=== PATIENT | male | born 1990 ===

== ENCOUNTER 2017-10-09 10:47 | Emergency (ER) | payer BC ==
[2017-10-09 10:55] VITALS: BP 143/81
--- NOTE | 2017-10-09 11:20 | Emergency Department Report ---
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 Patient also states that last month or 2 he's had some increased sneezing and congestion secondary possibly to pollen.), No Rhinorrhea, No Sore Throat, No Ear Pain, No Sick Contacts, No Hemoptysis, No Chest Pain, No Shortness of Breath, No Fever ED Review of Systems ROS: Stated complaint: MEDICAL CLEARANCE Other details as noted in HPI Comment: All other systems reviewed and negative ED Past Medical Hx - Past Medical History Previous Medical History?: No - Surgical History Past Surgical History?: No - Social History Smoking Status: Former Smoker Substance Use Type: None Minor Respiratory Exam - Exam General: Vital signs noted. No distress. Alert and acting appropriately. HEENT: Yes Moist Mucous Membranes, No Pharyngeal Erythema, No Pharyngeal Exudates, No Rhinorrhea, No Conjuctival Injection, No Frontal Tenderness, No Maxillary Tenderness Ear: Neither TM Bulge, Neither TM Erythema, Neither EAC Pain, Neither EAC Discharge Neck: Yes Supple, No Adenopathy Lungs: Yes Good Air Exchange, No Wheezes, No Ronchi, No Stridor, No Cough, No Labored Respirations, No Retractions, No Use of Accessory Muscles, No Other Abnormal Lung Sounds Heart: Yes Regular, No Murmur Abdomen: Yes Normal Bowel Sounds, No Tenderness, No Peritoneal Signs Skin: No Rash, No Edema Neurologic: Alert and oriented, no deficits. Musculoskeletal: Unremarkable. ED Course Vital Signs 10/09/17 10:51 Temperature 98.2 F Pulse Rate 76 Respiratory 16 Rate Blood Pressure 143/81 O2 Sat by Pulse 98 Oximetry ED Medical Decision Making - Medical Decision Making The patient was given recommendations to take [id number] Claritin and Flonase will be discharged home. Critical care attestation.: If time is entered above; I have spent that time in minutes in the direct care of this critically ill patient, excluding procedure time. ED Disposition Clinical Impression: Allergic rhinitis Qualifiers: Allergic rhinitis trigger: other Allergic rhinitis seasonality: non-seasonal Qualified Code(s): J30.89 - Other allergic rhinitis Disposition: DC-01 TO HOME OR SELFCARE Is pt being admited?: No Does the pt Need Aspirin: No Condition: Stable Additional Instructions: Please try [id number] Claritin or Zyrtec with the addition of Flonase for your symptoms
== END 2017-10-09 11:25 | disposition home or self-care (01) ==
LOC: EDSEX → ED 10:47
DX: J30.89 Other allergic rhinitis (principal); Z87.891 Personal history of nicotine dependence
CPT/HCPCS: 99281

== ENCOUNTER 2021-05-25 17:53 | Emergency (ER) | payer SELFPAY ==
[2021-05-25 19:09] VITALS: BP 123/71
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
== END 2021-05-25 20:37 | disposition home or self-care (01) ==
LOC: ED 17:53
DX: M25.532 Pain in left wrist (principal); V87.7XXA Person injured in collision between other specified motor vehicles (traffic), initial encounter; Y93.89 Activity, other specified; Y92.488 Other paved roadways as the place of occurrence of the external cause; Y99.8 Other external cause status
CPT/HCPCS: 99283